=== PATIENT | female | born 1940 | race Caucasian/White ===

== ENCOUNTER 2018-02-26 20:34 | Emergency (ER) | payer OTHER, MEDICARE ==
[~2018-02-26] VITALS: Ht 160 cm; Wt 90.3 kg
[~2018-02-26 20:34] MED LIST: ALD25 PO; AMLODIPINE10 M1 PO; ANASTROZOLE1 M1 PO; CRESTOR40 M1 PO; KEFLEX500 MG PO; LAC PO; NAPROSYN500 MG PO; PIOGLITAZONE30 M1 PO; PRILOSEC40 MG PO; SPIRIVA18 MC1; TERAZOSIN HCL2 MG PO
[2018-02-26 21:48] VITALS: Ht 160 cm; Wt 90.3 kg
[2018-02-27 00:44] VITALS: BP 147/69
== END 2018-02-27 00:44 | disposition home or self-care (01) ==
LOC: ED 20:34
DX: J44.1 Chronic obstructive pulmonary disease with (acute) exacerbation (principal); I10 Essential (primary) hypertension; E11.9 Type 2 diabetes mellitus without complications; E78.00 Pure hypercholesterolemia, unspecified; Z85.3 Personal history of malignant neoplasm of breast
CPT/HCPCS: J7512; J7613; J7644

== ENCOUNTER 2019-11-28 15:24 | Inpatient (IN) | payer OTHER, SELFPAY ==
[~2019-11-28] VITALS: Ht 160 cm; Wt 86.6 kg
[2019-11-28 15:34] VITALS: Ht 160 cm; Wt 86.6 kg
--- NOTE | 2019-11-28 15:45 | NUR ---
PT TAKEN TO CT VIA ER LAURA, NO DISTRESS NOTED
--- NOTE | 2019-11-28 15:46 | NUR ---
PPT BIBA C/O ABD PAIN 04/25 THAT STARTS IN GENITAL AREA AND RAIDATES TO LEFT FLANK X1DAY. PT REPORTS BEING NAUSES SINCE 1400 TODAY/ PT IS AAOX4. RESP E/U, LUNGS CTA. MD MARTINEZ DONE BY MD PALOMINO. AWAITING FURHTER ORDERS.
--- NOTE | 2019-11-28 15:56 | NUR ---
PT RETRUNED FROM CT VIA FRANCIS SANCHEZ
[2019-11-28 15:59] LABS: BASOPHIL % 1.1 % (0-2); PLATELET COUNT 115 x10^3mcL (130-400); RED CELL DISTRIBUTION WIDTH 18.1 % (11.5-14.5)
--- NOTE | 2019-11-28 16:06 | NUR ---
EKG IN PRGORESS BY JAIMEE ACCOMPANIED BY KRISTIAN NEWBERRY
--- NOTE | 2019-11-28 16:06 | NUR ---
MEDICATED PT PER MD ORDER, PLEASE SEE EMR
--- NOTE | 2019-11-28 16:11 | NUR ---
PLACED ON 2L NC
--- NOTE | 2019-11-28 16:29 | NUR ---
MD SOSA AT BEDSIDE DISCUSSING PLAN OF CARE AT THIS TIME.
[2019-11-28 16:42] LABS: ALBUMIN 3.7 g/dL (3.4-5.0); ALKALINE PHOSPHATASE 48 U/L (46-116); ALT/SGPT 22 U/L (14-59); AST/SGOT 26 U/L (15-37); BILIRUBIN TOTAL 0.56 mg/dL (0.20-1.00); CALCIUM 9.3 mg/dL (8.5-10.1); CARBON DIOXIDE 24.9 mmol/L (21-32); CHLORIDE SERUM 108 mmol/L (98-107); CHOLESTEROL 160 mg/dL (<200); CHOLESTEROL/HDL RATIO 3.1; CREATININE SERUM 1.5 mg/dL (0.6-1.0); GLUCOSE SERUM 147 mg/dL (74-106); HDL CHOLESTEROL 52 mg/dL (40-60); LIPASE 120 IU/L (73-393); POTASSIUM SERUM 3.7 mmol/L (3.5-5.1); SODIUM SERUM 143 mmol/L (136-145); TOTAL PROTEIN, SERUM 7.1 g/dL (6.4-8.2); TRIGLYCERIDES 108 mg/dL (<150)
[2019-11-28 16:45] LABS: T3 TOTAL 1.22 ng/mL
[2019-11-28 16:56] LABS: FREE T4 1.44 ng/dL (0.76-1.46)
[2019-11-28 16:57] LABS: FREE THYROXINE INDEX 4.6 ug/dL (1.4-4.5); T4(THYROXINE) 14.3 ug/dL (4.7-13.3)
--- NOTE | 2019-11-28 17:09 | NUR ---
SWABBED PT PER MD ORDERS. PT TOLERATED WELL
[2019-11-28 17:10] LABS: UA SPECIFIC GRAVITY 1.025 (1.005-1.035); microscopic required? YES; urine erythrocyte TRACE (NEGATIVE)
[2019-11-28] MEDS ORDERED: CARVEDILOL ER40 MG PO (17:11)
[2019-11-28] MEDS ORDERED: ROSUVASTATIN CA40 MG PO (17:11)
[2019-11-28] MEDS ORDERED: MICROZIDE12.5 MG PO (17:12)
[2019-11-28] MEDS ORDERED: ACTOS30 M1 PO (17:12)
[2019-11-28] MEDS ORDERED: ZESTRIL5 MG PO (17:12)
[2019-11-28] MEDS ORDERED: AMLODIPINE BESY1 TA1 PO (17:12)
[2019-11-28] MEDS ORDERED: HYDRALAZINE HCL25 MG PO ×2 (17:13→20:53)
[2019-11-28 17:40] LABS: LACTIC DEHYDROGENASE (LDH) 318 U/L (100-190)
--- NOTE | 2019-11-28 17:42 | NUR ---
MEDICATED PT PER MD ORDERS, PT TOLERATED WELL
[2019-11-28 17:47] LABS: C REACTIVE PROTEIN < 0.2 mg/dL (<=0.9)
--- NOTE | 2019-11-28 18:49 | NUR ---
REPORT GIVEN TO GARY WHO WILL ASSUME FURTHER CARE FOR THIS PT
--- NOTE | 2019-11-28 19:28 | NUR ---
RECEIVED REPORT FROM JARROD TO ASSUME CARE. PREVIOUS NOTE BY JUAN WAS MY MISTAKE.
--- NOTE | 2019-11-28 19:28 | NUR ---
RECEIVED REPORT FROM JARROD TO ASSUME CARE.
--- NOTE | 2019-11-28 20:12 | NUR ---
PT TRANSFERRED TO TELE VIA GURNEY BY EMT BETH AND MYSELF. PT TRANSFERRED WITHOUT INCIDENCE.
[2019-11-28 20:48] VITALS: BP 134/53
[2019-11-28] MEDS ORDERED: AMLODIPINE BESYL5 M2 PO (20:50)
[2019-11-28] MEDS ORDERED: CARVEDILOL3.125 M1 PO (20:50)
[2019-11-28] MEDS ORDERED: HYDROCHLOROTHIA25 MG PO (20:51)
[2019-11-28] MEDS ORDERED: LISINOPRIL20 MG PO (20:51)
[2019-11-28] MEDS ORDERED: CRESTOR40 M1 PO (20:54)
--- NOTE | 2019-11-28 21:30 | NUR ---
RECEIVED PT FROM ER, PT ADMIT FOR RIGHT PLEURAL EFFUSION, R/O COVID. PT IS A/O X4, VERBAL RESPONSIVE. LUNG SOUND DIM RIGHT SIDE, BUT PT DENY ANY SOB AT THIS TIME, PT IS ON 2L/MIN O2 VIA NC. PO2 94%, PT IS ON TELE 29, SB, DENY ANY CHEST PAIN OR DISCOMFORT, BOWEL SOUND PRESENT ALL 4 QUADRANTS, NO DISTENTION, NO TENDER. DENY LEFT FLANK PAIN AT THIS MOMENT. PEDAL PULSE PRESENT BOTH FEET, NONPITTING EDEMA BLE. IV AT RIGHT AC, NO LEAKING, NO INFILTRATION. ALL ADLS ASSIST, ALL NEED MET, CALL LIGHT IN REACH, WILL CONTINUE TO MONITOR. PT IS ON DROPLET PRECAUTION FOR R/O COVID.
--- NOTE | 2019-11-29 00:05 | NUR ---
PT RESTING IN BED WITH NO ACUTE DISTRESS, NO SOB AT THIS TIME, ALL PT NEEDS ATTENDED TO, SAFETY PRECAUTIONS IN PLACE, WILL CONTINUE TO MONITOR
--- NOTE | 2019-11-29 02:10 | NUR ---
PT RESTING IN BED WITH NO ACUTE DISTRESS AT THIS TIME, PT DENIES RESPIRATORY DISTRESS, ALL PT NEEDS ATTENDED TO AT THIS TIME, WILL CONTINUE TO MONITOR
--- NOTE | 2019-11-29 05:07 | NUR ---
PT RESTED COMFORTABLY THROUGH THE NIGHT, PT DID COMPLAIN OF ONE EPISODE OF FLANK PAIN TREATED EFFECTIVELY WITH TORODAL ORDERED BY DR CALHOUN, PT HAD NO EPISODES OF SOB THROUGH THE NIGHT, ALL PT NEEDS ATTENDED TO THROUGH CARE, WILL CONTINUE TO MONITOR AND ENDORSE CARE TO ONCOMING SHIFT
[2019-11-29 06:06] VITALS: BP 120/68
--- NOTE | 2019-11-29 06:53 | NUR ---
ASKED DR CHEUNG IF HE WANTED CONTINUOUS PULSE OX ON PT, AND DR CHEUNG SAID NO NEED
[2019-11-29 07:00] LABS: BASOPHIL % 0.3 % (0-2)
--- NOTE | 2019-11-29 07:03 | NUR ---
PT COMPLAINING OF CHEST PRESSURE AND JAW PAIN, INFORMED DR CHEUNG, ORDER OF 12 LEAD EKG, TROPONIN, AND NITRO.
[2019-11-29 07:17] LABS: PLATELET COUNT 105 x10^3mcL (130-400); RED CELL DISTRIBUTION WIDTH 18.1 % (11.5-14.5)
[2019-11-29 07:29] LABS: CALCIUM 8.5 mg/dL (8.5-10.1); CARBON DIOXIDE 26.4 mmol/L (21-32); CHLORIDE SERUM 109 mmol/L (98-107); CREATININE SERUM 1.5 mg/dL (0.6-1.0); GLUCOSE SERUM 107 mg/dL (74-106); MAGNESIUM 2.5 mg/dL (1.8-2.4); PHOSPHOROUS 3.9 mg/dL (2.5-4.9); POTASSIUM SERUM 4.2 mmol/L (3.5-5.1); SODIUM SERUM 143 mmol/L (136-145)
--- NOTE | 2019-11-29 07:34 | NUR ---
ENDORSED DR CHEUNG CONFIRMING HYDROCHLOROTHIAZIDE ORDER, WELL HX OF PT RECENT CHEST PRESSURE AND RESULTING ORDERS TO [facility] [place].
[2019-11-29 09:22] VITALS: BP 106/49
--- NOTE | 2019-11-29 09:30 | NUR ---
RECEIVED AWAKE, ALERT AND ORIENTED. IN NO ACUTE RESP. DISTRESS. VS WNL. NO C/O PAIN OR DISCOMFORT AT THIS TIME. HL PATENT. CALL LIGHT WITHIN REACH. WILL CONTINUE WITH PLAN OF CARE.
--- NOTE | 2019-11-29 12:26 | NUR ---
RADILOGIST IN FOR THORACENTESIS. PT IN NO ACUTE DISTRESS. DENIES PAIN AT THIS TIME.
[2019-11-29 12:58] VITALS: BP 86/35
--- NOTE | 2019-11-29 13:10 | NUR ---
THORACENTESIS COMPLETED, PT TOLERATED WELL.1500ML OUTPUT. BP SLIGHTLY LOW BUT PT ASYMPTOMATIC. DENIES PAIN AT THIS TIME.WILL CONTINUE TO MONITOR.
[2019-11-29 14:32] LABS: SOURCE FLUID THORACENTESIS
[2019-11-29 14:33] LABS: APPEARANCE FLUID CLEAR; COLOR FLUID PALE YELLOW; RBC FLUID 7928 /cumm; WBC FLUID 194 /cumm
[2019-11-29 14:34] LABS: LYMPHOCYTE FLUID 30 %; MONOCYTE FLUID 54 %
[2019-11-29 16:42] VITALS: BP 100/41
[2019-11-29 18:49] VITALS: BP 109/40
--- NOTE | 2019-11-29 18:49 | NUR ---
PT REMAINS IN NO ACUTE RESP. DISTRESS, ON O2 2L N/C SATS 95%. C/O MILD/MOD. PAIN TO INCISION SITE. MEDICATED WITH TYLENOL PER PRN ORDER. IV ANTIBIOTIC INFUSNG WELL AND SITE CLEAR. CALL LIGHT WITHIN REACH.WILL BE ENDORSED TO INCOMING SHIFT.
--- NOTE | 2019-11-29 18:57 | NUR ---
P.T. NOTES P.T. EVAL COMPLETED; WILL BENEFIT W/ P.T. POST ACUTE STAY. O2 SAT ROOM AIR=80s, 2L=94%; OCCASIONALLY COUGHS.
[2019-11-29 21:29] VITALS: BP 110/52
[2019-11-30 05:51] VITALS: BP 130/57
--- NOTE | 2019-11-30 06:59 | NUR ---
PATIENT RESTING IN BED, RESPIRATION EVEN AND UNLABORED, ON O2 2L PER NASAL CANNULA, ON DROPLET AND CONTACT ISOLATION. IV SITE NO SIGN OF INFILTRATION. DENIES PAIN. ASSISTED WITH NEEDS. SAFETY OBSERVED. PLACED BED IN THE LOWEST POSITION. PLACED CALL LIGHT WITHIN REACH AT ALL TIMES.
[2019-11-30 07:29] LABS: BASOPHIL % 0.4 % (0-2)
--- NOTE | 2019-11-30 07:30 | NUR ---
PT ENDORSE TO ME THIS MORNING, LAYING IN BED RESTING/ AA/O X4/ BREATHING EVEN AND UNLABORED ON RA / NO ACUTE RESP DISTRESS OR SOB NOTED. TELE 29 SR NOTED/ DENIES ANY CP OR PRESSURE. VOIDS FREELY/BSC NEAR PT/ AT TIMES INCONTINENT/ KNOWS TO CALL FOR ASSIST. GEN WEAKNESS/ AMB. IV TO THE RFA INTACT AND PATENT/ HEPLOCKED. CALL LIGHT IN REACH.REAMINS ON ISOLATION. WILL CONTINUE TO MONITOR.
[2019-11-30 07:52] LABS: CALCIUM 8.7 mg/dL (8.5-10.1); CARBON DIOXIDE 26.6 mmol/L (21-32); CHLORIDE SERUM 106 mmol/L (98-107); CREATININE SERUM 1.7 mg/dL (0.6-1.0); GLUCOSE SERUM 100 mg/dL (74-106); SODIUM SERUM 140 mmol/L (136-145)
[2019-11-30 08:16] LABS: PLATELET COUNT 101 x10^3mcL (130-400); RED CELL DISTRIBUTION WIDTH 18.1 % (11.5-14.5)
[2019-11-30 09:24] VITALS: BP 120/34
--- NOTE | 2019-11-30 10:34 | NUR ---
COVID-19 RESULTS =NEG/ ISOLATION REMOVED.
--- NOTE | 2019-11-30 11:39 | NUR ---
REPORT GIVEN TO KRISTIAN CARO/ LOS ENDORSE .
[2019-11-30 11:40] VITALS: BP 118/33
--- NOTE | 2019-11-30 12:10 | NUR ---
RECEIEVED PT REPORT FROM RN YULIA, CARE ENDORSED AT THIS TIME. PT SEEN AT BEDSIDE. AOX4, RESP E/U 2L NC. RESTING COMFORTABLY, DENIES SOB. BED IN LOWEST POSITION AND CALL LIGHT WITHIN REACH. WILL CONTINUE TO MONITOR.
[2019-11-30 15:26] VITALS: BP 109/31
--- NOTE | 2019-11-30 18:39 | NUR ---
PT RESTING IN BED, AOX4, RESP E/U ON 1L NC. WEANED OFF O2 THIS TIME TO RA. O2 SAT: 100%. DENIES SOB, NO RESP DISTRESS NOTED. IV TO L HAND PATENT/INTACT, IVF INFUSING WELL. BED IN LOWEST POSITION AND CALL LIGHT WITHIN REACH. WILL ENDORSE TO ONCOMING NURSE.
--- NOTE | 2019-11-30 19:47 | NUR ---
RECEIVED PATIENT FROM PREVIOUS SHIFT NURSE. PATIENT IN NO ACUTE DISTRESS. EVEN AND UNLABORED BREATHING, ROOM AIR. TELE #29, NSR. PATIENT AWAKE, ALERT AND ORIENTED X4. NO C/O OF PAIN, CHEST PAIN OR SOB AT THIS MOMENT. PATIENT ABLE TO MAKE NEEDS KNOWN. L HAND IV, GOOD BLOOD RETURN. IV WNL. NO ERYTHEMA/EDEMA AT IV SITE. BED IN LOWEST POSITION. CALL LIGHT WITHIN REACH.
[2019-11-30 20:23] VITALS: BP 113/36
--- NOTE | 2019-11-30 20:55 | NUR ---
PATIENT O2 AT 67%, PATIENT PLACED ON 3L OXYGEN, HOB ELEVATED. PATIENT 02 NOW ABOVE 90'S. PATIENT ASYMPTOMATIC AND DENIES SOB.
[2019-11-30 21:38] VITALS: BP 113/36
--- NOTE | 2019-12-01 00:50 | NUR ---
PATIENT REMAINS IN NO ACUTE DISTRESS. CURRENTLY SLEEPING. EVEN AND UNLABORED BREATHING. CONT PULSE OX IN PLACE, SPO2 100%. TELE #29, SB. 3L NC. BED IN LOWEST POSITION. CALL LIGHT WITHIN REACH.
[2019-12-01 05:02] VITALS: BP 122/40
--- NOTE | 2019-12-01 06:18 | NUR ---
NO ACUTE DISTRESS. EVEN AND UNLABORED BREATHING. 3L NASAL CANULA. O2 97%. TELE #29. NO C/O OF PAIN, CHEST PAIN OR SOB AT THIS MOMENT. COMMODE AT BEDSIDE. LEFT HAND IV WNL. BED IN LOWEST POSITION. CALL LIGHT WITHIN REACH. WILL ENDORSE CARE TO ONCOMING SHIFT. WILL CONTINUE TO MONITOR.
[2019-12-01 07:08] LABS: BASOPHIL % 0.5 % (0-2)
[2019-12-01 07:29] LABS: PLATELET COUNT 91 x10^3mcL (130-400); RED CELL DISTRIBUTION WIDTH 17.7 % (11.5-14.5)
--- NOTE | 2019-12-01 07:30 | NUR ---
SEEN IN BED RESTING WITH EYES CLOSED. NO RESP DISTRESS NOTED, O2 3LPM N/C MAINTAINED, O2SAT 95% AT THIS TIME. ON TELE#29 NSR. ON CARDIAC DIET. BSC PROVIDED. S/L TO LT HAND INTACT. CALL LIGHT NOTED WITHIN EASY REACH. SIDERAILS UP X2.
[2019-12-01 07:31] LABS: CALCIUM 8.5 mg/dL (8.5-10.1); CARBON DIOXIDE 28.9 mmol/L (21-32); CHLORIDE SERUM 106 mmol/L (98-107); CREATININE SERUM 1.4 mg/dL (0.6-1.0); GLUCOSE SERUM 94 mg/dL (74-106); POTASSIUM SERUM 4.4 mmol/L (3.5-5.1); SODIUM SERUM 140 mmol/L (136-145)
[2019-12-01 07:41] VITALS: BP 139/60
--- NOTE | 2019-12-01 08:00 | NUR ---
SEEN BY DORITA SCHULTZ AT BEDSIDE.
--- NOTE | 2019-12-01 08:22 | NUR ---
PER RT, PATIENT IS NOW ON ROOM AIR, O2SAT 95% RESTING IN BED.
--- NOTE | 2019-12-01 09:47 | NUR ---
GOT CALLED INTO PT'S ROOM. PT DESATS TO 82%, PT DENIED ANY SOB. PLACED PT ON 2L NC, SPO2 WENT UP TO 92-93%. TOP STOP ATTACHER MADE AWARE. WILL CONT TO MONITOR.
[2019-12-01 11:30] VITALS: BP 124/56
[2019-12-01 16:00] VITALS: BP 121/54
--- NOTE | 2019-12-01 17:35 | NUR ---
IV CATHETER TO LT HAND REMOVED PER PATIENT'S REQUEST. NEW IV CATHETER#22 INSERTED TO RFA WITH GOOD BLD RETURNED AND FLUSHED WELL. ROCEPHIN INFUSING AT THIS TIME.
[2019-12-01 19:55] VITALS: BP 112/37
--- NOTE | 2019-12-01 20:00 | NUR ---
RECEIVED PT IN BED, RESTING QUIETLY,A/O X4. DENIES HEADACHE/DIZZINESS. RESP. EVEN AND UNLABORED. 02 AT 3L/MIN VIA NC, SAT. 97%, DENIES SOB. NO ACUTE DISTRESS NOTED. SR ON THE MONITOR, DENIES CHEST PAIN OR ANY DISCOMFORT. HL TO RFA, INTACT AND PATENT. NO ACUTE DISTRESS NOTED. ASSISTED WITH HS CARE. CALL LIGHT WITHIN REACH. WILL CONTINUE TO MONITOR.
--- NOTE | 2019-12-02 01:22 | NUR ---
RESTING QUIETLY IN BED, WITH EYES CLOSED, APPEARS ASLEEP, EASILY AROUSABLE. RESP. EVEN AND UNLABORED. [address], NO ACUTE DISTRESS NOTED. WILL CONTINUE TO MONITOR.
[2019-12-02 05:37] VITALS: BP 146/45
--- NOTE | 2019-12-02 05:44 | NUR ---
ALERT AND ORIENTED. RESP. EVEN AND UNLABORED. [address], NO ACUTE DISTRESS NOTED. AFEBRILE AND VITAL SIGNS STABLE. DUE MEDS GIVEN ORDERED. NANCY. WELL. ABLE TO USE THE BSC, VOIDING FREELY. NO COMPLAINTS NOTED AT THIS TIME. CALL LIGHT WITHIN REACH. WILL CONTINUE TO MONITOR.
[2019-12-02 06:49] LABS: BASOPHIL % 0.6 % (0-2)
[2019-12-02 06:58] LABS: PLATELET COUNT 92 x10^3mcL (130-400); RED CELL DISTRIBUTION WIDTH 17.2 % (11.5-14.5)
[2019-12-02 06:59] LABS: CALCIUM 8.6 mg/dL (8.5-10.1); CARBON DIOXIDE 28.6 mmol/L (21-32); CHLORIDE SERUM 105 mmol/L (98-107); CREATININE SERUM 1.2 mg/dL (0.6-1.0); GLUCOSE SERUM 98 mg/dL (74-106); POTASSIUM SERUM 4.1 mmol/L (3.5-5.1); SODIUM SERUM 139 mmol/L (136-145)
[2019-12-02 08:14] VITALS: BP 141/42
--- NOTE | 2019-12-02 09:50 | NUR ---
AT 0715 - RECEIVED PATIENT FROM NIGHT NURSE. AWAKE, ALERT AND ORIENTED. MONITOR SHOWING SINUS RHYTHM; RATE 60. RESPIRATIONS REGULAR. O2 SAT 90% ON 3L VIA NC. AT 0800 - SITTING UP IN BED EATING BREAKFAST. PATIENT HAD TAKEN O2 OFF AND O2 SAT WAS NOTED TO BE 86%. PLACED BACK ON NC AT 3L AND O2 SAT RETURNED TO 90%.
[2019-12-02 12:15] VITALS: BP 126/48
--- NOTE | 2019-12-02 15:08 | NUR ---
AT 1330 - STATUS CHANGED TO MED-SURG. PATIENT TAKEN OFF CARDIAC MONITORING. SPOKE WITH PARTS CLERK SCHULTZ REGARDING PATIENT'S CONCERNS ABOUT PLANNED DISCHARGE TO SNF AND IV ANTIBIOTICS. PER PARTS CLERK, PATIENT WILL BE DISCHARGED TO [facility] TOMORROW FOR CONTINUATION OF IV ANTIBIOTICS. URINE CULTURE SENSITIVITIES AVAILABLE - PATIENT CAN STAY ON ROCEPHIN. INFORMED PATIENT OF PLAN. AT 1450 - PATIENT RETURNED TO BED AFTER AMBULATING TO BATHROOM AND C/O SHORTNESS OF BREATH. PATIENT HAD BEEN TAKEN OFF SUPPLIMENTAL O2 BY RT. NOW PLACED BACK ON 1.5. WILL ATTEMPT TO WEAN OFF AFTER PATIENT SETTLES.
[2019-12-02 17:33] VITALS: BP 153/50
--- NOTE | 2019-12-02 18:04 | NUR ---
IV IN RFA FOUND TO BE INFILTRATED. IV CATHETER REMOVED INTACT AND IV RESITED IN RFA. COMMENCED IV ROCEPHIN SCHEDULED. SITTING UP INB ED EATING DINNER. HAD BEEN AMBULATING TO BATHROOM FOR TOILET NEEDS. BLOOD GLUCOSE LEVELS WNL. VSS. AFEBRILE. WILL ENDORSE CARE TO NIGHT NURSE.
--- NOTE | 2019-12-02 18:23 | NUR ---
PHYSICAL THERAPY DAILY NOTES CO-SIGN All documentation done by the Foreclosure Specialist for 12/02/19 has been reviewed. I agree with the documentation. Reviewed/Co-Signed by: Kim Salinas PT Documentation Done by:LUCAS HARRINGTON CABLE RIGGER POC REVIEWED W/ CABLE RIGGER
--- NOTE | 2019-12-02 19:20 | NUR ---
RECIEVED PT RESTING IN BED WITH NO ACUTE DISTRESS NOTED AT THIS TIME, ASSESSMENT PERFORMED AT THIS TIME (SEE SHIFT ASSESSMENT) NO SOB OR PAIN AT THIS TIME, ALL NEEDS ATTENDED TO SAFETY PRECAUTIONS IN PLACE, WILL CONTINUE TO MONITOR
[2019-12-02 20:41] VITALS: BP 149/48
--- NOTE | 2019-12-02 23:43 | NUR ---
PT RESTING IN BED WITH NO ACUTE DISTRESS NOTED AT THIS TIME, PT DENIES PAIN OR SOB, RESTING COMFORTABLY IN BED, SAFETY PRECAUTIONS IN PLACE, WILL CONTINUE TO MONITOR.
--- NOTE | 2019-12-03 03:30 | NUR ---
PT RESTING IN BED WITH NO ACUTE DISTRESS NOTED AT THIS TIME, PT DENIES PAIN OR SOB AT THIS TIME, SAFETY PRECAUTIONS IN PLACE, ALL NEEDS ATTENDED TO, WILL CONTNUE TO MONITOR
[2019-12-03 05:28] VITALS: BP 172/61
--- NOTE | 2019-12-03 06:13 | NUR ---
PT RESTED IN BED WITH NO ACUTE DISTRESS NOTED THROUGH SHIFT, PT HAD NO EPISODES OF PAIN OR SOB THROUGH OUT SHIFT, ALL NEEDS ATTENDED TO THROUGH CARE, SAFETY PRECAUTIONS REMAINED IN PLACE, WILL CONTINUE TO MONITOR AND ENDORSE CARE TO ONCOMING RN
[2019-12-03 06:40] LABS: BASOPHIL % 0.4 % (0-2); CARBON DIOXIDE 33.4 mmol/L (21-32); CHLORIDE SERUM 104 mmol/L (98-107); GLUCOSE SERUM 92 mg/dL (74-106); POTASSIUM SERUM 4.2 mmol/L (3.5-5.1); SODIUM SERUM 141 mmol/L (136-145)
[2019-12-03 06:47] LABS: PLATELET COUNT 100 x10^3mcL (130-400); RED CELL DISTRIBUTION WIDTH 17.4 % (11.5-14.5)
--- NOTE | 2019-12-03 07:54 | NUR ---
RECIEVED REPORT FROM [facility] NURSE. PATIENT CURRENTLY AWAKE ALERT AND ORIENTED X 4. NO REPORT OF PAIN AT THIS TIME. PATIENT IS ON STANDARD PRECAUTIONS. PATIENT RECIEED THORACENTESIS PROCEDURE ON 11/28 WITH 1.5 LITER REMOVED. PATIENT CURRENTLY ON 2 LITER NASAL CANNULA AND IS SATURATING AT 94%. IV TO THE RIGHT FOREARM CURRENTLY SALINE LOCKED. URINE CULTURE POSITIVE FOR GRAM NEGATIVE BACILLI PATIENT CURRENTLY RECIEVING INTRAVENOUS ANTIBIOTICS: ROCEPHIN, AND ZITHROMAX. POSSIBLE D/C TO SNF TODAY. ALL SAFETY PRECAUTIONS IN PLACE. CALL LIGHT WITHIN REACH. WILL CONTINUE TO PROVIDE CARE FOR PATIENT.
[2019-12-03 08:28] VITALS: BP 131/37
[2019-12-03] MEDS ORDERED: ROC1I IV (09:02)
[2019-12-03 13:54] VITALS: BP 131/37
[2019-12-03 13:55] VITALS: BP 124/36
--- NOTE | 2019-12-03 16:55 | NUR ---
DISCHARGE EDUCATION PROVIDED TO PATIENT. TRANSFER ACKNOWLDGEMENT SIGNED BY PATIENT. PATIENT UNDERSTANDS SHE IS GOING TO [facility] FOR CONTINUED ANTIBIOTIC TREATMENT WELL CONTINUED PHYSICAL THERAPY. PATIENT AGREES TO TRANSFER. REPORT CALLED TO [facility] AND GIVEN TO RECIEVING NURSE. PATIENT PICKED UP BY [facility] AND TRANSPORTED VIA GURNEY ON 2 LITER OXYGEN NC. PATIENT DISCHARGED WITH IV CATH INTACT. ALL DISCHARGE PAPERWORK SIGNED AND PLACED IN CHART.
== END 2019-12-03 16:55 | DRG 193 ==
LOC: ED 15:24 → DU 17:40 → MU 12-02 13:05
PROVIDERS: Specialist; ADMIT Family Medicine
PROC: 0W993ZZ Drainage of Right Pleural Cavity, Percutaneous Approach (ICD-10-PCS; principal; 2019-11-29)
DX: J18.9 Pneumonia, unspecified organism (principal); N17.0 Acute kidney failure with tubular necrosis; N39.0 Urinary tract infection, site not specified; J90 Pleural effusion, not elsewhere classified; J44.0 Chronic obstructive pulmonary disease with (acute) lower respiratory infection; Z88.2 Allergy status to sulfonamides; I10 Essential (primary) hypertension; E11.9 Type 2 diabetes mellitus without complications; E78.00 Pure hypercholesterolemia, unspecified; E86.0 Dehydration; Z85.3 Personal history of malignant neoplasm of breast; Z20.828 Contact with and (suspected) exposure to other viral communicable diseases
CPT/HCPCS: 32555; 82962; 83880; 84439; 87804; 88344; 97112-GP; 97116-GP; 97530-GP; C1729; G0378; J0456; J0696; J1815; J1885; J2405; J7030; J7040; J7050; J7060; Q0092